=== PATIENT | female | born 1990 | race Caucasian/White ===

== ENCOUNTER 2018-03-16 19:58 | Emergency (ER) | END 2018-03-17 00:13 | disposition home or self-care (01) ==

== ENCOUNTER 2018-12-11 18:51 | Emergency (ER) | payer BC, OTHER ==
[~2018-12-11] VITALS: Ht 165.1 cm; Wt 84.0 kg
[~2018-12-11 18:51] MED LIST: ALBU8.5H8 INH; ATRO INH; CYCL10TA7 PO; HYDR-4011 PO; IBUP-1542 PO; LEVA15HF6 INH; PRED20TA PO
[2018-12-11 19:01] VITALS: BP 129/78; PULSE 84; RESP 18; Ht 165.1 cm; Wt 84.0 kg
[2018-12-11] MEDS ORDERED: KETOROLAC 30 MG INJ IM STA (21:40)
[2018-12-11] MEDS ORDERED: HYDROCODONE/APAP (10/325) TAB PO ONE (22:00)
--- NOTE | 2018-12-11 22:02 | ERD ---
ER Documentation Chief Complaint Chief Complaint R ANKLE PAIN S/P TWISTING ANKLE HPI This is a 27-year-old female presents emergency department with complaints of right ankle pain that started around 2:30 PM, while at work. 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 A0. Denies headache, head injury, loss of consciousness, dizziness, neck pain, neck stiffness, throat pain, difficulty swallowing, difficulty breathing lying flat, shoulder pain, chest pain, back pain, abdominal pain, nausea, vomiting, constipation, diarrhea, urinary symptoms, or possibility being , loss of bowel and bladder control, numbness or tingling sensation, calf pain, recent travel, recent major surgery in the last 3 weeks, calf pain, recent long travel, recent exposure to any illness, recent antibiotic use in the last 3 months, fever, chills, seizures. Past medical history: Asthma. Surgical history: Social: Denies smoking, use of alcoholic beverages, use of illegal drugs. ROS All systems reviewed and are negative except as per history of present illness. Medications Home Meds Active Scripts Ibuprofen* (Motrin*) 800 Mg Tab, 800 MG PO Q6H PRN for PAIN AND OR ELEVATED TEMP, #30 TAB Prov:RAFAT JIMÉNEZ 12/11/18 Hydrocodone/Acetaminophen ([place] 5-325 Tablet) 1 Each Tablet, 1 TAB PO Q6H PRN for SEVERE PAIN LEVEL 7-10, #7 TAB Prov:VITOR HARRIS NP 03/16/18 Cyclobenzaprine Hcl* (Cyclobenzaprine Hcl*) 10 Mg Tablet, 10 MG PO TID, #15 TAB Prov:VITOR HARRIS NP 03/16/18 Ibuprofen* (Motrin*) 600 Mg Tab, 600 MG PO Q6H PRN for PAIN AND OR ELEVATED TEMP, #30 TAB Prov:VITOR HARRIS NP 03/16/18 Albuterol Sulfate* (Proair HFA*) 8.5 Gm Hfa.aer.ad, 2 PUFF INH Q4H PRN for WHEEZING AND SOB, #1 INHALER Prov:BILL HENDRICKS PA-C 08/30/16 Prednisone* (Prednisone*) 20 Mg Tab, 40 MG PO DAILY for 4 Days, TAB Prov:BILL HENDRICKS PA-C 08/29/16 Ipratropium [place]* (Atrovent HFA*) 12.9 Gm Aer.w.adap, 2 PUFF INH Q6 PRN for SHORTNESS OF BREATH, #1 EA Prov:DELIA COLÓN PA-C 10/27/15 Levalbuterol* (Xopenex* HFA) 15 Gm Inha, 2 PUFFS INH Q4H PRN for WHEEZING AND SOB, #1 INHALER Prov:DELIA COLÓNC 10/27/15 Prednisone* (Prednisone*) 20 Mg Tab, 40 MG PO DAILY for 4 Days, TAB Prov:DELIA COLÓN PA-C 10/27/15 Allergies Allergies: Coded Allergies: No Known Allergy (Unverified , 10/26/15) PMhx/Soc Medical and Surgical Hx: pt denies Surgical Hx History of Surgery: No Anesthesia Reaction: No Hx Neurological Disorder: No Hx Respiratory Disorders: Yes (asthma ) Hx Cardiac Disorders: Yes Hx Psychiatric Problems: No Hx Miscellaneous Medical Probl: No Hx Alcohol Use: No Hx Substance Use: Yes (marijuana) Hx Tobacco Use: No Smoking Status: Never smoker Physical Exam Vitals Physical Exam Const: No acute distress Head: Atraumatic Eyes: Normal Conjunctiva ENT: Normal External Ears, Nose and Mouth. Neck: Full range of motion. No meningismus. Resp: Clear to auscultation bilaterally Cardio: Regular rate and rhythm, no murmurs Abd: Soft, non tender, non distended. Normal bowel sounds Skin: No petechiae or rashes Back: No midline or flank tenderness Ext: No cyanosis, or edema. Right ankle: Swelling laterally. No obvious deformity. Pain to range of motion. Skin is not warm. No redness. Right pedal pulses within normal limits. Right toes has good and full range of motion. Capillary refills to right lower extremity are less than 2 seconds. No calf tenderness. Right knee is unremarkable. Bilateral hips are stable and unremarkable. Left lower extremity is unremarkable. Capillary refills to left lower extremity are less than 2 seconds. No neurovascular deficit. Neur: Awake and alert. No neurological deficits. Psych: Normal Mood and Affect Results 24 hrs Laboratory Tests Test 12/11/18 21:56 POC Beta HCG, Qualitative NEGATIVE Current Medications Medications Dose Sig/Debra Start Time Status Last (Trade) Ordered Route PRN Stop Time Admin Dose Reason Admin Ketorolac 30 mg ONCE STAT 12/11/18 DC 12/11/18 Tromethamine IM 21:40 22:07 (Toradol) 12/11/18 21:43 1 tab ONCE ONCE 12/11/18 DC 12/11/18 Acetaminophen PO 22:00 22:07 / 12/11/18 22:01 Hydrocodone Bitart ([place] ()) Procedures/MDM Diagnostic tests: POC urine : Negative. X-ray of the right tibia and fibula: No acute fracture. X-ray of the right ankle: Mild soft tissue swelling over the lateral and anterior aspects of the right ankle. No evident acute fracture. X-ray of the right foot: No acute fracture. Treatment: Toradol IM. [place] p.o. [place] wrap. Crutches and crutche training was also provided. Re-evaluation: No neurovascular deficit prior to and after the application of [place] wrap. Differential diagnosis I have low suspicion for displaced fracture, Lisfranc fracture, compartment syndrome. Final diagnosis: Ankle sprain. Prescription: Motrin. Follow-up with PCP in the next 24-48 hours. Follow-up with an orthopedic doctor if symptoms persist. Come back here in the emergency department for any new symptoms or any worsening symptoms. All questions and concerns were answered. Patient and family members verbalized understanding and agreed with plan of care. Hemodynamically stable on discharge. Departure Diagnosis: Primary Impression: Ankle injury Additional Impression: Ankle sprain Condition: Stable Additional Instructions: Follow-up with PCP in the next 24-48 hours. Follow-up with an orthopedic doctor if symptoms persist. Come back here in the emergency department for any new symptoms or any worsening symptoms. RAFAT JIMÉNEZ Dec 11, 2018 22:02
[2018-12-11] MEDS ORDERED: IBUP800T48 PO (23:15)
== END 2018-12-12 00:06 | disposition home or self-care (01) ==
LOC: FTE 18:51
DX: S93.401A Sprain of unspecified ligament of right ankle, initial encounter (principal); J45.909 Unspecified asthma, uncomplicated; W01.0XXA Fall on same level from slipping, tripping and stumbling without subsequent striking against object, initial encounter; Y92.89 Other specified places as the place of occurrence of the external cause
CPT/HCPCS: 73590; 73610; 73630; 81025; 96372; 99284; J1885